=== PATIENT | female | born 1985 | race Caucasian/White ===

== ENCOUNTER 2024-12-19 08:58 | Emergency (ER) | payer OTHER, SELFPAY ==
--- NOTE | ~2024-12-19 | CT_ITS ---
CLINICAL HISTORY: ? right RPA v [employer] [facility] or cellulitis CT soft tissue neck with contrast Comparison: CT - CT SOFT TISSUE NECK W IV CON - 12/19/24 12:04 EST Findings: The visualized intracranial contents are unremarkable. There is a peripherally enhancing fluid collection within the right oropharynx involving the tonsillar pillar measuring 20 mm diameter there is associated effacement of the oropharynx with severe airway narrowing. There is ill-defined surrounding low-density extending into the right hypopharynx associated with effacement of the vallecula and right piriform sinus. Multiple pathologically enlarged bilateral cervical lymph nodes, largest of which is in the right neck at level II measuring 14 mm short axis. Salivary glands are unremarkable. No sialoliths. No suspicious thyroid nodules. No consolidation at the lung apices. No acute fractures. IMPRESSION: 1. Right peritonsillar abscess with surrounding pharyngitis extending into the hypopharynx. There is associated severe airway narrowing. This document has been electronically signed by: Boogie Elliott MD on 12/19/2024 13:21:59
[2024-12-19 09:23] VITALS: BP 121/80; PULSE 89; RESP 16; TEMP 36.7; O2SAT 100; BMI 30.5
[2024-12-19 09:45] LABS: MANUAL DIFF FLAG NO
--- OUTSIDE RECORDS SUMMARY | 2024-12-19 09:48 | XMS_ITS ---
Author Organization [facility] Address [address] [place] [address] Care Team Providers Care Brickmason Name Role Phone MEGAN PEREZ Unavailable [phone] MARGARITA BRUSH Unavailable [phone] ALLERGIES No Known Allergies REASON FOR VISIT pt presents in office today for urgent care visit with concerns of mild rash on her body MEDICATIONS Medication SIG (Take, Route, Frequency, Duration) Notes Start Date End Date Status predniSONE 20 MG two tablets first fi ve days then one tablet last five days Orally Once a day for 10 days 12/12/2023 Active Clotrimazole 1 % 1 application Residential Sales Consultant ally Twice a day for vaginitis for 30 days 12/12/2023 Active Collagen Plus Vitamin C 740-125 MG as directed Orally Active Multivitamin - 1 tablet Orally Once a day Active Loratadine 10 MG 1 tablet Orally Once a day PRN Active SOCIAL HISTORY Tobacco Use: Social History Observation Description Date Details (start date - stop date) Never Smoker NA - NA Sex Assigned At : Social History Observation Description Sex Assigned At Unknown Tobacco Use/Smoking Question Answer Notes 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 tob: denies drug: denies caffeine: daily exercise: beach body, 30 minutes per day 5 days per week PHQ-9: 3 VITAL SIGNS Blood pressure systolic 140 mm Hg 12/12/19 24 Blood pressure diastolic 100 mm Hg 024 Heart Rate 95 /min 12/12/2023 Height 64 in 12/12/2023 Weight 197.7 lbs 12/12/2023 BMI 33.93 kg/m2 12/12/2023 Oximetry 99 % 12/12/2023 Encounters Encounter Location Date Provider Diagnosis [facility] 119 [address] [facility] [address] [place] [address] 12/12/2023 MARGARITA BRUSH Skin rash R21 ASSESSMENTS Encounter Date Diagnosis Assessment Notes Treatment Notes Treatment Clinical Notes Section Notes 12/12/2023 Skin rash (ICD-10 - R21) #new rash: Was on duflican, 2 doses for yeast infection. Following the second dose patient noticed itchy rash on her arms that presead to her chest and face. Patient cannot recall new foods or changes in hygeine products that may have caused this. On physical exam patient diffuse rash of the upper arms and chest. Will start patient on prednisone x10 days and as well as clotrimazole cream for irritation. If symptoms persist or get worse, patient was instructed to contact us. No need for scheduled follow up. PLAN OF TREATMENT Medication Medication Name Sig Start Date Stop Date Notes predniSONE 20 MG two tablets first fi ve days then one tablet last five days Orally Once a day for 10 days 12/12/2023 Clotrimazole 1 % 1 application Residential Sales Consultant ally Twice a day for vaginitis for 30 days 12/12/2023 Next Appt Details Provider Name:MEGAN PEREZ, Hannah 12/23/2024 10:45:00 AM, [address], [place], [address], Progress Notes * JEANETTE JessicaEarnestineOB: 5 (38 yo F)Acc No.[id number]:12/12/2023 Progress Notes Patient:??Allyson REID Provider:??Margarita Brush MD :1985?Age:38 Y?Sex:Fe male Date:12/12/2023 Address:[address] [place], [place] [id number] Subjective: * Chief Complaints: * ?1. Pt presents in offi ce today for urgent care visit with concerns of mild rash on her body. * HPI: ?Constitutional:? Patient presents today for urgent care due to new rash on arms and chest after starting diflucan for a yeast infection one week ago. It started on arm and spread to face and chest. Very itchy. First dose of diflucan was last morning, last dose saturday. Rash started saturday. Patient took one benadryl saturday night and last night but it did not improve symptoms. Other than the itchiness, patient has no other symptoms. Denies new foods or hygiene products. Has taken diflucan years ago without reaction. * ROS:?Constitutional: Patient denies any excessive fatigue with exercise, no weight loss, no fever and no night sweats ???Eyes: No eye discharge, no itching, no redness. ???Ear nose throat: No sore throat, postnasal drip, runny nose, Sneezing ???Cardiovascular: No chest pain, no shortness of breath, no dyspnea on exertion, no PND, no orthopnea, no irregular pulse ???Respiratory: No chronic cough, no hemoptysis, no sputum, no wheezing ???GI, no diarrhea, no constipation no blood in the stools, no pain associated with eating, no indigestion ???Genitourinary: No painful urination no hesitancy no blood in the urine ???Musculoskeletal, no limitations to walking and running, no joint deformity, no joint stiffness, no chronic back pain, no noise with joint movement ???Integumentary: + new itchy skin rash, started on arms and spread to chest and face ???Neurological: No history of seizures, memory loss, No language dysfunction, No inability to concentrate, no localized weakness, no sensation loss, no confusion ???Psychiatric: No depression, no suicidal thoughts, no anxiety ???Endocrine: No polyuria no polyphagia or polydipsia, no heat intolerance no cold intolerance. * Medical History:??Seasonal a llergies, Weight gain, Headaches. * Surgical History:?? 12/28/2013/06, oral surgery- wisdom teeth . * Family History:??Father: ali ve 64 yrs.??Mother: alive 61 yrs.??1 brother(s) - healthy. 2 daughter(s) - healthy. .?? family hx of memory issues and hypertension with grandmother no cancer in the family 2 children. 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 * Medications:??Taking Collage n Plus Vitamin C 740-125 MG Capsule as directed Orally , Taking Multivitamin - Tablet 1 tablet Orally Once a day , Taking Loratadine 10 MG Tablet 1 tablet Orally Once a day , Notes to Pharmacist: PRN, Medication List reviewed and reconciled with the patient * Allergies:??N.K.D.A. Objective: * Vitals:??HR:95/min, BP:140/1 00mm Hg, Wt:197.7lbs, BMI:33.93Index, Ht: 64 in, Oxygen sat %:99%. * Physical Examination:?General: Age appropriate female, well appearing, no acute distress, speaking in full sentences without respiratory compromise. Well groomed, well developed. ?Skin: +eryhtematous diffuse rash of the upper arms and chest. No signs of infection. ?HEENT: Normocephalic/atraumatic. EOMI intact. PERRLA. Vision intact. No ptosis or lid lag. Nares without discharge or inflammation. Oral cavity free of plaques or exudates. Dentition well maintained. No pharyngeal erythema. Ear canal without cerumen or discharge. Tympanic membrane visualized including bony structures and cone of light. ?Neck/Thyroid: Supple, with no lymphadenopathy right side. Full ROM. Thyroid free of nodules and nonenlarged. ?Lung: Clear to auscultation bilaterally, no wheezes, rales or rhonchi. No barrel chest. Equal chest rise and fall bilaterally. ?Cardiac: S1 and S2 appreciated. No murmurs/rubs or gallops. ?Abdomen: Soft, nontender, normoactive bowel sounds. No reboung/guarding. No CVA tenderness. No Masses. ?Extremities: Bilateral lower extremities with no edema or rubor. No evidence of varicose veins. Equal tone bilaterally. ?MSK: Bilateral upper and lower extremities 5/5 strength with flexion/extension. Engineering Operator strength 5/5. Sensation intact. Assessment: * Assessment: 1.??Skin rash - R21 (Primary )?? #new rash: Was on duflican, 2 doses for yeast infection. Following the second dose patient noticed itchy rash on her arms that presead to her chest and face. Patient cannot recall new foods or changes in hygeine products that may have caused this. On physical exam patient diffuse rash of the upper arms and chest. Will start patient on prednisone x10 days and as well as clotrimazole cream for irritation. If symptoms persist or get worse, patient was instructed to contact us. No need for scheduled follow up. Plan: * Treatment: Care Plan: * Problems:?? * Images: Billing Information: * Visit Code:?? 97186 Office Visit, Est Pt., Level 3. Modifiers: 25 * Procedure Codes:?? Care Plan Details* * Sign off status: Completed true * Provider:??Margarita Brush MD Date:??12/12 History and Physical Notes * HPI (History of Present Illness) Category Sub-Category Detail Notes Category Not es Constitutional Patient prese nts today for urgent care due to new rash on arms and chest after starting diflucan for a yeast infection one week ago. It started on arm and spread to face and chest. Very itchy. First dose of diflucan was last morning, last dose saturday. Rash started saturday. Patient took one benadryl saturday night and last night but it did not improve symptoms. Other than the itchiness, patient has no other symptoms. Denies new foods or hygiene products. Has taken diflucan years ago without reaction. Physical Examination Category Sub-Category Detail Notes Section Note s General: Age appropriate female, well appearing, no acute distress, speaking in full sentences without respiratory compromise. Well groomed, well developed. Skin: +eryhtematous diffuse rash of the upper arms and chest. No signs of infection. HEENT: Normocephalic/atraumatic. EOMI intact. PERRLA. Vision intact. No ptosis or lid lag. Nares without discharge or inflammation. Oral cavity free of plaques or exudates. Dentition well maintained. No pharyngeal erythema. Ear canal without cerumen or discharge. Tympanic membrane visualized including bony structures and cone of light. Neck/Thyroid: Supple, with no lymphadenopathy right side. Full ROM. Thyroid free of nodules and nonenlarged. Lung: Clear to auscultation bilaterally, no wheezes, rales or rhonchi. No barrel chest. Equal chest rise and fall bilaterally. Cardiac: S1 and S2 appreciated. No murmurs/rubs or gallops. Abdomen: Soft, nontender, normoactive bowel sounds. No reboung/guarding. No CVA tenderness. No Masses. Extremities: Bilateral lower extremities with no edema or rubor. No evidence of varicose veins. Equal tone bilaterally. MSK: Bilateral upper and lower extremities 5/5 strength with flexion/extension. Engineering Operator strength 5/5. Sensation intact.
--- OUTSIDE RECORDS SUMMARY | 2024-12-19 09:48 | XMS_ITS | Patient Health Record ---
Author Organization [facility] Address [address] [place] [address] Care Team Providers Care Lab Scientist Name Role Phone MEGAN PEREZ Unavailable [phone] ALLERGIES No Known Allergies RESULTS Component Value Reference Range Notes LIPID PANEL, STANDARD (Not y et reviewed by provider) Interpretation: Performing Lab:NL2, [facility] [place] [address] [place], [place] [id number] Andre Fernandes Notes/Report: FASTING:YES FASTING: YES CHOLESTEROL, TOTAL 185 <200 mg/dL HDL CHOLESTEROL 51 > OR = 50 mg/dL TRIGLYCERIDES 71 <150 mg/dL LDL-CHOLESTEROL 117 Reference range: <100 Desirable range <100 mg/dL for primary prevention; <70 mg/dL for patients with CHD or diabetic patients with > or = 2 CHD risk factors. LDL-C is now calculated using the Сергей-Emma calculation, which is a validated novel method providing better accuracy than the Friedewald equation in the estimation of LDL-C. Сергей ESTEVEZ et al. JOHNATHAN. 2013;310(19): 3767-4548 (http://education.Valchemy.Oncovision/faq/PWH430) CHOL/HDLC RATIO 3.6 <5.0 (calc) NON HDL CHOLESTEROL 134 <130 mg/dL (calc) For patients with diabetes plus 1 major ASCVD risk factor, treating to a non-HDL-C goal of <100 mg/dL (LDL-C of <70 mg/dL) is considered a therapeutic option. COMPREHENSIVE METABOLIC PANE L (Not yet reviewed by provider) Interpretation: Performing Lab:NL2, [employer] [facility] Andre Fernandes Notes/Report: FASTING:YES FASTING: YES GLUCOSE 85 65-99 mg/dL Fasting reference interval UREA NITROGEN (BUN) 8 7-25 mg/dL CREATININE 0.64 0.50-0.97 mg/dL EGFR 115 > OR = 60 mL/min/1.73m2 BUN/CREATININE RATIO SEE NOTE: 6-22 (calc) Not Reported: BUN and Creatinine are within reference range. SODIUM 138 135-146 mmol/L POTASSIUM 4.1 3.5-5.3 mmol/L CHLORIDE 103 98-110 mmol/L CARBON DIOXIDE 28 20-32 mmol/L CALCIUM 9.0 8.6-10.2 mg/dL PROTEIN, TOTAL 6.7 6.1-8.1 g/dL ALBUMIN 4.0 3.6-5.1 g/dL GLOBULIN 2.7 1.9-3.7 g/dL (calc) ALBUMIN/GLOBULIN RATIO 1.5 1.0-2.5 (calc) BILIRUBIN, TOTAL 0.3 0.2-1.2 mg/dL ALKALINE PHOSPHATASE 68 31-125 U/L AST 17 10-30 U/L ALT 13 6-29 U/L CBC (H/H, RBC, INDICES, WBC, PLT) (Not yet reviewed by provider) Interpretation: Performing Lab:NL2, [facility] [address] [place], [place] [address] Andre Rileynyu [facility] Notes/Report: FASTING:YES FASTING: YES WHITE BLOOD CELL COUNT 6.1 3.8-10.8 Thousand/ uL RED BLOOD CELL COUNT 3.80 3.80-5.10 Million/uL HEMOGLOBIN 12.0 11.7-15.5 g/dL HEMATOCRIT 37.1 35.0-45.0 % MCV 97.6 80.0-100.0 fL MCH 31.6 27.0-33.0 pg MCHC 32.3 32.0-36.0 g/dL For adults, a slight decrease in the calculated MCHC value (in the range of 30 to 32 g/dL) is most likely not clinically significant; however, it should be interpreted with caution in correlation with other red cell parameters and the patient's clinical condition. RDW 11.8 11.0-15.0 % PLATELET COUNT 262 140-400 Thousand/uL MPV 10.7 7.5-12.5 fL URINALYSIS, COMPLETE (Not ye t reviewed by provider) Interpretation: Performing Lab:[facility], [facility] Notes/Report: FASTING:YES FASTING: YES COLOR YELLOW YELLOW APPEARANCE CLEAR CLEAR SPECIFIC GRAVITY 1.020 1.001-1.035 PH 6.5 5.0-8.0 GLUCOSE NEGATIVE NEGATIVE BILIRUBIN NEGATIVE NEGATIVE KETONES NEGATIVE NEGATIVE OCCULT BLOOD 1+ NEGATIVE PROTEIN NEGATIVE NEGATIVE NITRITE NEGATIVE NEGATIVE LEUKOCYTE ESTERASE NEGATIVE NEGATIVE WBC NONE SEEN < OR = 5 /HPF RBC NONE SEEN < OR = 2 /HPF SQUAMOUS EPITHELIAL CELLS 10-20 < OR = 5 /HPF BACTERIA FEW NONE SEEN /HPF HYALINE CAST NONE SEEN NONE SEEN /LPF NOTE This urine was analyzed for the presence of WBC, RBC, bacteria, casts, and other formed elements. Only those elements seen were reported. HEMOGLOBIN A1c (Not yet revi ewed by provider) Interpretation: Performing Lab:NL2, [facility] [address] Notes/Report: FASTING:YES FASTING: YES HEMOGLOBIN A1c 5.1 <5.7 % of total Hgb For the purpose of screening for the presence of diabetes: <5.7% Consistent with the absence of diabetes 5.7-6.4% Consistent with increased risk for diabetes (prediabetes) > or =6.5% Consistent with diabetes This assay result is consistent with a decreased risk of diabetes. Currently, no consensus exists regarding use of hemoglobin A1c for diagnosis of diabetes in children. According to [place] Diabetes Association (ADA) guidelines, hemoglobin A1c <7.0% represents optimal control in non- diabetic patients. Different metrics may apply to specific patient populations. Standards of Medical Care in Diabetes(ADA). VITAMIN D,25-OH,TOTAL,IA (No t yet reviewed by provider) Interpretation: Performing Lab:NL2, [facility] [id number] [id number] Notes/Report: FASTING:YES FASTING: YES VITAMIN D,25-OH,TOTAL,IA 24 30-100 ng/mL Vitamin D Status 25-OH Vitamin D: Deficiency: <20 ng/mL Insufficiency: 20 - 29 ng/mL Optimal: > or = 30 ng/mL For 25-OH Vitamin D testing on patients on D2-supplementation and patients for whom quantitation of D2 and D3 fractions is required, the QuestAssureD(TM) 25-OH VIT D, (D2,D3), LC/MS/MS is recommended: order code 48815 (patients >2yrs). See Note 1 Note 1 For additional information, please refer to http://education.TapDog/faq/KQC204 (This link is being provided for informational/ educational purposes only.) REASON FOR REFERRAL No Information MEDICATIONS Medication SIG (Take, Route, Frequency, Duration) Notes Start Date End Date Status predniSONE 20 MG two tablets first fi ve days then one tablet last five days Orally Once a day for 10 days 12/12/2023 Active Clotrimazole 1 % 1 application Brazing Machine Operator Helper ally Twice a day for vaginitis for [...] Question Answer Notes Are you a nonsmoker Alcohol Screen (Audit-C) Question Answer Notes Did you have a drink contain ing alcohol in the past year? Yes How often did you have a dri nk containing alcohol in the past year? 2 to 3 times a week (3 points) Points 3 Interpretation Positive Section Notes: center customer service associate alcohol: socially tob: denies drug: denies caffeine: daily exercise: beach body, 30 minutes per day 5 days per week PHQ-9: 3 center customer service associate alcohol: socially tob: denies drug: denies caffeine: daily exercise: beach body, 30 minutes per day 5 days per week PHQ-9: 3 center customer service associate alcohol: socially tob: denies drug: denies caffeine: daily exercise: beach body, 30 minutes per day 5 days per week PHQ-9: 3 center customer service associate alcohol: socially tob: denies drug: denies caffeine: daily exercise: beach body, 30 minutes per day 5 days per week PHQ-9: 3 center customer service associate alcohol: socially tob: denies drug: denies caffeine: daily exercise: beach body, 30 minutes per day 5 days per week PHQ-9: 3 PROBLEMS Problem Type ICD Code Onset Dates Problem Status W/U Status Risk SNOMED Code Notes Problem Other obesity (E66.8) Active confirmed 482603264 Problem Seasonal allergies (J30.2) Active confirmed 081084254 Problem Vitamin D deficiency (E55.9) Active confirmed Vitamin D deficiency (17239802) Problem BMI 31.0-31.9,adult (Z68.31) Active confirmed 567499879 Problem BMI 30.0-30.9,adult (Z68.30) Active confirmed Body mass index 30+ - obesity (772502594) Problem Difficulty sleeping (G47.9) Active confirmed 614976650 Encounters Encounter Location Date Provider Diagnosis [facility] [address] [place] [address] 11/11/2024 MEGAN PEREZ Vitamin D deficiency E55.9 ; Kidney disease N28.9 ; Screening for lipid disorders Z13.220 and Screening for diabetes mellitus Z13.1 ASSESSMENTS Encounter Date Diagnosis Assessment Notes Treatment Notes Treatment Clinical Notes Section Notes 11/11/2024 Vitamin D deficiency (ICD-10 - E55.9) 11/11/2024 Kidney disease (ICD-10 - N28.9) 11/11/2024 Screening for lipid disorders (ICD-10 - Z13.220) 11/11/2024 Screening for diabetes mellitus (ICD-10 - Z13.1) PLAN OF TREATMENT Pending Test Test Name Order Date LIPID PANEL 11/11/2024 LIPID PANEL, STANDARD 12/18/2024 COMPREHENSIVE METABOLIC PANEL 12/18/2024 COMPREHENSIVE METABOLIC PANEL 11/11/2024 CBC (H/H, RBC, INDICES, WBC, PLT) 2024 CBC (H/H, RBC, INDICES, WBC, PLT) 2024 URINALYSIS, COMPLETE 11/11/2024 URINALYSIS, COMPLETE 12/18/2024 HEMOGLOBIN A1c 11/11/2024 HEMOGLOBIN A1c 12/18/2024 VITAMIN D,25-OH,TOTAL,IA 12/18/2024 VITAMIN D,25-OH,TOTAL,IA 11/11/2024 Next Appt Details Provider Name:MEGAN PEREZ, 0 12/23/2024 10:45:00 AM, [address], [place], [address], Insurance Providers Payer Name Payer Address Payer Phone Subscriber Number Group Number Insured Name Patient Relationship to Insured Coverage Start Date Coverage End Date [employer] [address] [address] [place] [id number] Allyson Helms Self - patient is the insured MEDICAL (GENERAL) HISTORY Medical History History ICD Code seasonal allergies weight gain headaches Surgical History Surgery Date(Month/Year) 12/28/2013/06 oral surgery- wisdom teeth
--- OUTSIDE RECORDS SUMMARY | 2024-12-19 09:48 | XMS_ITS ---
Author Organization [facility] Address [address] [place] [address] Care Team Providers Care Art Manager Name Role Phone MEGAN PEREZ Unavailable [phone] REASON FOR VISIT bloodwork Encounters Encounter Location Date Provider Diagnosis [facility] [address] [place] [phone] 11/11/2024 MEGAN PEREZ Vitamin D deficiency E55.9 [...] Test Name Order Date LIPID PANEL 11/11/2024 COMPREHENSIVE METABOLIC PANEL 11/11/2024 CBC (H/H, RBC, INDICES, WBC, PLT) 2024 URINALYSIS, COMPLETE 11/11/2024 HEMOGLOBIN A1c 11/11/2024 VITAMIN D,25-OH,TOTAL,IA 11/11/2024 Next Appt Details Provider Name:MEGAN PEREZ, 0 12/23/2024 10:45:00 AM, [address], [place], [address], Progress Notes * Aramis REIDOB: 5 (39 yo F)Acc No.[id number]:11/11/2024 Patient:??Allyson REID :1985?Age:39 Y?Sex:Fe male Address:[address] [place] [address] Subjective: * Chief Complaints: * ?Bloodwork * Medical History:?? * Surgical History:?? * Hospitalization/Major Diagno stic Procedure:?? * Medications:?? Objective: Assessment: * Assessment: 1.??Vitamin D deficiency - E 55.9??2.??Kidney disease - N28.9??3.??Screening for lipid disorders - Z13.220??4.??Screening for diabetes mellitus - Z13.1?? Plan: * Treatment: 2.??Kidney disease?LAB: COMPREHENSIVE METABOLIC PANEL ?LAB: CBC (H/H, RBC, INDICES, WBC, PLT) ?LAB: URINALYSIS, COMPLETE 3.??Screening for lipid diso rders?LAB: LIPID PANEL ?LAB: COMPREHENSIVE METABOLIC PANEL ?LAB: CBC (H/H, RBC, INDICES, WBC, PLT) 4.??Screening for diabetes m ellitus?LAB: COMPREHENSIVE METABOLIC PANEL ?LAB: CBC (H/H, RBC, INDICES, WBC, PLT) ?LAB: HEMOGLOBIN A1c * Procedure Codes:?? * true * Date:??
--- OUTSIDE RECORDS SUMMARY | 2024-12-19 09:48 | XMS_ITS ---
Author Organization [facility] Address [address] [place] [address] Care Team Providers Care Permastone Mechanic Name Role Phone ANAMEGAN PULLIAM Unavailable [phone] Encounters Encounter Location Date Provider Diagnosis [facility] [address] [facility] [address] [place] [address] 12/12/2023 MEGAN PEREZ PLAN OF TREATMENT Next Appt Details Provider Name:MEGAN PEREZ, 0 12/23/2024 10:45:00 AM, [address], [place], [address], Progress Notes * Aramis REIDOB: 5 (38 yo F)Acc No.[id number]:12/12/2023 Patient:??Allyson REID :1985?Age:38 Y?Sex:Fe male Address:[address] [place] [address] * true * Date:??"
[2024-12-19 09:59] LABS: Anion Gap 12 (12-20); Blood Urea Nitrogen 6 mg/dL (9-16); Calcium 9.4 mg/dL (8.4-10.2); Carbon Dioxide 26 mmol/L (22-29); Chloride 106 mmol/L (96-108); Creatinine Clr Calc Pharmacy 117.4; Estimated Glomerular Filt Rate > 60; Glucose Random 95 mg/dL (60-115); Potassium 3.7 mmol/L (3.3-5.1); Sodium 140 mmol/L (135-145)
--- NOTE | 2024-12-19 10:06 | ED.GENADULT ---
HPI - General Adult General Chief complaint: General Medical Stated complaint: sent from urgent care - abscess in throat, strep + Time Seen by Provider: 12/19/24 10:06 Related Data Allergies Allergy/AdvReac Type Severity Reaction Status Date / Time No Known Allergies Allergy Verified 12/19/24 09:24 [facility] Social History Social History Advance Directives: No Advance Directives Information Provided: No Do you have a plan to hurt others: No Plan Physical Exam ED Vital Signs: Vital Signs - 24 hr 12/19/24 09:23 Temperature 98.0 F Pulse Rate 89 Respiratory Rate 16 Blood Pressure 121/80 Pulse Oximetry 100 Oxygen Delivery Method Room Air BMI result Body Mass Index 30.5 Medical Decision Making Lab Data 12/19/24 09:42 12/19/24 09:42 Labs: Lab Results 12/19/24 Range/Units 09:42 Sodium 140 (135-145) mmol/L Potassium 3.7 (3.3-5.1) mmol/L Chloride 106 (96-108) mmol/L Carbon Dioxide 26 (22-29) mmol/L Anion Gap 12 (12-20) BUN 6 L (9-16) mg/dL Creatinine 0.66 (0.5-1.4) mg/dL Estim Creat Clear Calc 117.4 Estimated GFR > 60 Random Glucose 95 (60-115) mg/dL Calcium 9.4 (8.4-10.2) mg/dL Discharge Plan Discharge Print Language: Hungarian
--- NOTE | 2024-12-19 10:08 | ED.URI ---
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 Currently on reporting sore throat extending down right lateral neck. Endorses odynophagia, able to manage secretions. Denies fevers, chills, headache, dizziness,chest pain, shortness of breath, difficulty breathing, nausea, vomiting, abdominal pain, numbness or tingling of the extremities, genitourinary symptoms. Related Data Allergies Allergy/AdvReac Type Severity Reaction Status Date / Time No Known Allergies Allergy Verified 12/19/24 09:24 Review of Systems Review of Systems: Yes all other systems are reviewed and are negative PMFSH Past Medical History Attestation statement: The following information was validated with the patient. Source: old records reviewed Physical Exam Vital Signs: Vital Signs: Last Vital Signs Temp 98.0 F 12/19/24 16:07 Pulse 89 12/19/24 16:07 Resp 16 12/19/24 16:07 BP 121/80 12/19/24 16:07 Pulse Ox 100 12/19/24 16:07 O2 Del Method Room Air 12/19/24 16:07 BMI result Body Mass Index 30.5 Appearance: Alert.?Oriented to person, place and time. No acute distress.?Normal affect. Eyes: Pupils equal, round and reactive to light.? ENT: TM normal bilaterally. Erythematous posterior oropharynx, uvula is slightly shifted from midline towards the left, with swelling on the right, cobblestoning appearance of the tonsil. No trismus. No drooling. Neck: Normal inspection.? Neck supple.??No cervical adenopathy CVS: Heart sounds normal. Normal heart rate and rhythm.? Pulses normal.?? Respiratory: No respiratory distress.? Lung sounds clear to auscultation bilaterally?? Abdomen: Soft and non-tender. Normoactive bowel sounds. Skin: Skin warm and dry.? Normal skin color.? ? Extremities: No lower extremity edema.? Neuro: Moves all extremities spontaneously. Sensation intact bilaterally. No motor deficits. Ambulates with normal steady gait. Course Reevaluation(s) Reevaluation #1: CT revealing a right peritonsillar abscess measuring 20 mm diameter with surrounding pharyngitis extending to the hypopharynx with severe airway narrowing. Again she remains without respiratory distress, managing secretions, no drooling, no trismus, no muffled voice. Afebrile without tachycardia. She has been covered with venous and thus far, pain has been relieved with ketorolac, receiving Decadron 10 mg. I reviewed with my attending Dr. Pal also examined patient at bedside, [facility] for appropriate drainage. Time: 13:35 Reevaluation #2: Dr. Aguirre - ENT [facility], discussed case, advised patient may be transferred to the emergency department there are for ENT consultation. Patient agreeable with plan of care Time: 14:11 Medications Administered Discontinued Medications Generic Name Dose Route Start Last Admin Trade Name Freq PRN Reason Stop Dose Admin Dexamethasone Sodium Phosphate 10 mg 12/19/24 13:32 12/19/24 13:50 Dexamethasone Sod Phosphate 10 Mg/Ml Vial PO 12/19/24 13:33 10 mg ONCE ONE Administration Sodium Chloride 1,000 mls @ 999 mls/hr 12/19/24 10:30 12/19/24 11:52 Ns IV 12/19/24 11:30 Infused .Q1H1M HERON Infusion Ampicillin Sodium/Sulbactam 100 mls @ 200 mls/hr 12/19/24 10:30 12/19/24 11:22 Sodium 3 gm/ Sodium Chloride IV 12/19/24 10:59 Infused ONCE ONE Infusion Iohexol 100 ml 12/19/24 12:07 12/19/24 12:07 Iohexol 350 Mg/Ml 100 Ml Infus..Btl IV 12/19/24 12:08 70 ml ONCE ONE Administration Ketorolac Tromethamine 15 mg 12/19/24 11:51 12/19/24 12:02 Ketorolac Tromethamine 15 Mg/Ml Vial IVPUSH 12/19/24 11:52 15 mg ONCE ONE Administration Medical Decision Making Medical Decision Making MDM Narrative: Patient is a 39-year-old female who presents to the emergency department for evaluation of sore throat radiating down to the right lateral aspect of her neck as per HPI. At urgent care had a positive strep test but was advised to come to emergency department for further evaluation due to concern for possible abscess. On evaluation her uvula is shifted slightly towards the left and the right posterior oropharynx is notably swollen with a cobblestoning appearance, difficult to visualize a discrete abscess. 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 Obtaining CT of the soft tissue neck to evaluate further for possible RPA. Endorses cold symptoms earlier in the week with rhinorrhea and fatigue but states that this has since resolved, will obtain COVID-19/influenza/RSV testing to exclude viral etiology as well. At this time she is managing her airway, nontoxic in appearance, afebrile without tachycardia tachypnea or hypoxia. Differential Diagnosis Differential Diagnoses: The differential diagnosis associated with the presentation includes ( See narrative above) Admission/Observation Consideration of admission/observation: Escalation of care including admission/observation considered ( see narrative above) Lab Data MDM Lab Attestation statement: I reviewed the patient's lab results. ( see narrative above) CBC is without leukocytosis, anemia, thrombocytopenia. No electrolyte derangement. No SPEEDY. 12/19/24 09:42 12/19/24 09:42 Labs: Lab Results 12/19/24 12/19/24 Range/Units 09:42 13:53 WBC 8.9 (4.8-10.8) X10*3/uL RBC 3.78 L (4.20-5.50) X10*6/uL Hgb 12.2 (12.0-16.0) g/dl Hct 35.3 L (37.0-47.0) % MCV 93.4 (80.0-98.0) fL MCH 32.3 (27.0-33.0) pg MCHC 34.6 (31.0-35.0) g/dl RDW 11.8 (11.0-16.0) % Plt Count 243 (160-400) X10*3/uL MPV 10.1 (9.4-12.3) fL Immature Gran % (Auto) 0.3 (0.0-0.4) % Neut % (Auto) 78.7 H (45-73) % Lymph % (Auto) 9.1 L (20-40) % Duchesne % (Auto) 11.4 H (2-11) % Eos % (Auto) 0.3 (0-4) % Baso % (Auto) 0.2 (0-2) % Lymph # (Auto) 0.8 L (1.2-4.9) X10*3/uL Duchesne # (Auto) 1.0 (0.1-1.2) X10*3/uL Eos # (Auto) 0.0 (0.0-0.4) X10*3/uL Baso # (Auto) 0.0 (0.0-0.2) X10*3/uL Abs Immat Gran (auto) 0.03 (0.00-0.03) X10*3/uL Absolute Neuts (auto) 7.0 (2.0-8.3) x10*3/uL Absolute Nucleated RBC 0.000 (0.0-0.012) X10*3/uL Nucleated RBC % (auto) 0.0 (0.0-0.2) /100WBC Sodium 140 (135-145) mmol/L Potassium 3.7 (3.3-5.1) mmol/L Chloride 106 (96-108) mmol/L Carbon Dioxide 26 (22-29) mmol/L Anion Gap 12 (12-20) BUN 6 L (9-16) mg/dL Creatinine 0.66 (0.5-1.4) mg/dL Estim Creat Clear Calc 117.4 Estimated GFR > 60 Random Glucose 95 (60-115) mg/dL Calcium 9.4 (8.4-10.2) mg/dL Beta HCG, Quant < 2 mIU/mL Influenza Type A (PCR) NEGATIVE (Negative) Influenza Type B (PCR) NEGATIVE (Negative) RSV RNA Qual (PCR) NEGATIVE (Negative) SARS-CoV-2 RNA (RT-PCR) NEGATIVE (Negative) Independent Interpretation I performed an independent interpretation of an: CT Scan (Positive peritonsillar abscess on the right, airway narrowing) Radiology Impression Discussion of test interpretation with radiology: I have reviewed the radiologist's reading. Radiologist Impression: CT soft tissue neck with contrast Comparison: CT - CT SOFT TISSUE NECK W IV CON - 12/19/24 12:04 EST Findings: The visualized intracranial contents are unremarkable. There is a peripherally enhancing fluid collection within the right oropharynx involving the tonsillar pillar measuring 20 mm diameter there is associated effacement of the oropharynx with severe airway narrowing. There is ill-defined surrounding low-density extending into the right hypopharynx associated with effacement of the vallecula and right piriform sinus. Multiple pathologically enlarged bilateral cervical lymph nodes, largest of which is in the right neck at level II measuring 14 mm short axis. Salivary glands are unremarkable. No sialoliths. No suspicious thyroid nodules. No consolidation at the lung apices. No acute fractures. IMPRESSION: 1. Right peritonsillar abscess with surrounding pharyngitis extending into the hypopharynx. There is associated severe airway narrowing. External Record Review External record reviewed: Outpatient record Prescription Management I considered prescription management with: Pain Medication ( acetaminophen/ibuprofen) Discharge Plan Discharge Clinical Impression: Abscess, peritonsillar, Acute streptococcal pharyngitis Patient Disposition: Xfer Acute Care Hospital Transfer Details: [facility] Referrals: Tobias Batres PA-C [Primary Care Provider] - Interventions: Acute Care Transfer Worksheet (ED) Last Done: 12/19/24 16:07 Discharge Date/Time: 12/19/24 16:07 Print Language: Salvadorean
[2024-12-19 10:16] LABS: Basophils Percent Auto 0.2 % (0-2); Eosinophils Percent Auto 0.3 % (0-4); Hematocrit 35.3 % (37.0-47.0); Hemoglobin 12.2 g/dl (12.0-16.0); Imm Gran Abs Auto 0.03 X10*3/uL (0.00-0.03); Imm Gran Pct Auto 0.3 % (0.0-0.4); Lymphocytes Absolute Auto 0.8 X10*3/uL (1.2-4.9); Lymphocytes Percent Auto 9.1 % (20-40); Mean Corpuscular HGB Conc 34.6 g/dl (31.0-35.0); Mean Corpuscular Hemoglobin 32.3 pg (27.0-33.0); Mean Corpuscular Volume 93.4 fL (80.0-98.0); Mean Platelet Volume 10.1 fL (9.4-12.3); Monocytes Percent Auto 11.4 % (2-11); Neutrophils Percent Auto 78.7 % (45-73); Platelet Count 243 X10*3/uL (160-400); Red Blood Count 3.78 X10*6/uL (4.20-5.50); Red Cell Distribution Width 11.8 % (11.0-16.0); White Blood Count 8.9 X10*3/uL (4.8-10.8)
[2024-12-19] MEDS: 0.9 % Sodium Chloride 1,000 ML 999 ML IV (10:52)
[2024-12-19] MEDS: Ampicillin Sodium/Sulbactam Na 3 GM in 0.9 % Sodium Chloride 100 ML IV (10:52)
[2024-12-19] MEDS: Ketorolac Tromethamine 15 MG/ML VIAL IVPUSH (12:02)
[2024-12-19 12:05] LABS: HCG Quantitative < 2 mIU/mL
[2024-12-19] MEDS: iohexoL 350 MG/ML 100 ML INFUS..BTL IV (12:07)
[2024-12-19] MEDS: dexAMETHasone sod phosphate 10 MG/ML VIAL PO (13:50)
[2024-12-19 14:36] LABS: Influenza A PCR NEGATIVE (Negative); Influenza B PCR NEGATIVE (Negative); Resp Syncy Virus RNA Qual PCR NEGATIVE (Negative); SARS COV2 PCR INHOUSE NEGATIVE (Negative)
[2024-12-19 16:07] VITALS: BP 121/80; PULSE 89; RESP 16; TEMP 36.7; O2SAT 100
== END 2024-12-19 16:07 | disposition short-term general hospital (02) ==
PROVIDERS: Nurse Practitioner Family; Emergency Provider Emergency Medicine; PCP Physician Assistant
DX: K04.7 Periapical abscess without sinus (principal); J02.0 Streptococcal pharyngitis; R05.9 Cough, unspecified; Z03.818 Encounter for observation for suspected exposure to other biological agents ruled out
CPT/HCPCS: 0241U; 36415; 70491; 80048; 84702; 85025; 96361; 96374; 96375; 99285; J0295; J1100; J1885; Q9967

== ENCOUNTER → 2024-12-19 10:29 | Outpatient (BNV) | payer OTHER, SELFPAY | PROVIDERS: Emergency Provider Emergency Medicine; PCP Physician Assistant; Visit Provider Radiology Diagnostic Radiology | DX: J36 Peritonsillar abscess (principal) | CPT/HCPCS: 70491 ==